=== PATIENT | female | born 1975 | race Hispanic/Latino ===

== ENCOUNTER 2021-10-30 06:00 | Emergency (ER) | payer OTHER, SELFPAY ==
--- NOTE | 2021-10-30 07:46 | ER ---
Nurse's Notes [facility] Name: Mackenzie Cho Age: 46 yrs Sex: Female : 1975 Arrival Date: 10/30/2021 Time: 06:06 Bed 6 Private MD: Diagnosis: Acute lymphadenitis of face, head and neck Presentation: 10/30 06:21 Chief complaint: Patient states: she was coughing but it turned into a headache on the bb left side of her head radiating to her neck x 1 week pt has taken OTC medications, tramadol, promethazine, and zofran with no relief of her headache or nausea. Coronavirus screen: Client presents with at least one sign or symptom that may indicate coronavirus-19. Ebola Screen: No symptoms or risks identified at this time. Initial Sepsis Screen: Does the patient meet any 2 criteria? No. Patient's initial sepsis screen is negative. Does the patient have a suspected source of infection? No. Patient's initial sepsis screen is negative. Risk Assessment: Do you want to hurt yourself or someone else? Patient reports no desire to harm self or others. Onset of symptoms was October 23, 2021. 06:21 Method Of Arrival: Ambulatory bb 06:21 Acuity: HEATHER 3 bb Triage Assessment: 08:12 Pain: Also complains of. 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 - Social history:: Smoking status: Patient denies any tobacco usage or history of. - Family history:: not pertinent. - Hospitalizations: : No recent hospitalization is reported. Screenin:37 Abuse screen: Denies threats or abuse. Denies injuries from another. Nutritional tw5 screening: No deficits noted. Tuberculosis screening: No symptoms or risk factors identified. Fall Risk None identified. Assessment: 06:37 General: Appears uncomfortable, Behavior is calm, cooperative, appropriate for age, tw5 Reports "I was sick last week and I finally got rid of the cough, but I have this terrible headache that just wont go away no matter what I take.". Pain: Complains of pain in "Headache," Patients states it is affecting mostly the left side of her head Pain currently is 9 out of 10 on a pain scale. Neuro: Level of Consciousness is awake, alert, obeys commands, Oriented to person, place, time, situation, Moves all extremities. 07:50 General: Appears in no apparent distress. uncomfortable, Behavior is calm, cooperative. tp1 Pain: Complains of pain in left side of forehead Pain radiates to left side of necck and left ear Pain currently is 8 out of 10 on a pain scale. Quality of pain is described as sharp. Neuro: Level of Consciousness is awake, alert, obeys commands, Oriented to person, place, time, situation. Cardiovascular: Patient's skin is warm and dry. Respiratory: Airway is patent Respiratory effort is even, unlabored. GI: Abdomen is round non-distended. : No signs and/or symptoms were reported regarding the genitourinary system. EENT: Cervical nodes enlarged on left. Derm: Skin is pink, warm \\T\\ dry. 07:50 Musculoskeletal: Circulation, motion, and sensation intact. tp1 Vital Signs: 06:21 BP 155 / 106; Pulse 81; Resp 16 S; Temp 98.3(O); Pulse Ox 98% on R/A; Weight 70.76 kg bb (R); Height 4 ft. 11 in. (149.86 cm) (R); Pain 9/10; 06:37 BP 152 / 98; Pulse 80; Resp 18; Pulse Ox 100% on R/A; tw5 08:04 BP 123 / 89; Pulse 76; Resp 18; Pulse Ox 97% on R/A; tp1 06:21 Body Mass Index 31.51 (70.76 kg, 149.86 cm) Providence Coma Score: 07:21 Eye Response: spontaneous(4). Verbal Response: oriented(5). Motor Response: obeys rn commands(6). Total: 15. ED Course: 06:06 Patient arrived in ED. ja2 06:15 Jese Macdonald MD is Attending Physician. kdr 06:24 Triage completed. bb 06:24 Arm band placed on Patient placed in an exam room, on a stretcher, on pulse oximetry. bb 06:31 Nel Engle is Primary Nurse. tw5 06:37 Patient has correct armband on for positive identification. Placed in gown. Bed in low tw5 position. Call light in reach. Side rails up X 1. Pulse ox on. NIBP on. Door closed. Noise minimized. Moved to private room. Warm blanket given. Verbal reassurance given. 07:11 Attending Physician role handed off by Jese Macdonald MD rn 07:11 Kian Graves MD is Attending Physician. rn 08:12 No provider procedures requiring assistance completed. Patient did not have IV access tp1 during this emergency room visit. Administered Medications: 07:53 Drug: Clindamycin 300 mg Route: PO; tp1 08:11 Follow up: Response: Medication administered at discharge. tp1 07:53 Drug: Zithromax (azithromycin) 500 mg Route: PO; tp1 08:11 Follow up: Response: Medication administered at discharge. tp1 07:59 Drug: Decadron (dexamethasone) 10 mg Route: IM; Site: right deltoid; tp1 08:12 Follow up: Response: Medication administered at discharge. tp1 07:59 Drug: Ketorolac 30 mg Route: IM; Site: right deltoid; tp1 08:12 Follow up: Response: Medication administered at discharge. tp1 Medication: 06:37 VIS not applicable for this client. tw5 Outcome: 07:46 Discharge ordered by . rn 08:13 Discharged to home ambulatory. tp1 08:13 Condition: good 08:13 Discharge instructions given to patient, Instructed on discharge instructions, follow up and referral plans. medication usage, Demonstrated understanding of instructions, follow-up care, medications, Prescriptions given X 2. 08:13 Patient left the ED. tp1 Signatures: Jese Macdonald MD MD kdr Ballard, Brenda, RN RN Kian Graves MD MD rn Alexander, Jessica ja Nel Engle tw5 Nel Tavarez RN RN tp1 Corrections: (The following items were deleted from the chart) 08:11 08:04 BP 123 / 89; tp1 tp1
--- NOTE | 2021-10-30 07:46 | EDPHYS ---
Physician Documentation [facility] Name: Mackenzie Cho Age: 46 yrs Sex: Female : 1975 Arrival Date: 10/30/2021 Time: 06:06 Bed 6 Private MD: ED Physician Kian Graves HPI: 10/30 07:21 This 46 yrs old Female presents to ER via Ambulatory with complaints of rn Headache, Cough, Neck Pain. 07:21 The patient complains of pain to the forehead and left jaw. The patient describes the rn headache as aching. Onset: The symptoms/episode began/occurred 1 week(s) ago. Associated signs and symptoms: Pertinent positives: This patient does not have any pertinent positive signs or symptoms associated with a headache. Pertinent negatives: altered mental status, fever, neck stiffness, rash. Severity of symptoms: At its worst the pain was moderate, in the emergency department the pain is unchanged. Headache History: Denies prior headaches. The patient has not experienced similar symptoms in the past. The patient has not recently seen a physician. Pt reports sick last week with cough/runny nose/congestion, felt like getting better, then frontal headache began along with swelling and pain along left anterior neck and jaw. No fever. No difficulty swallowing. No trauma. No pain along posterior neck or neck stiffness.. 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 - Social history:: Smoking status: Patient denies any tobacco usage or history of. - Family history:: not pertinent. - Hospitalizations: : No recent hospitalization is reported. ROS: 07:21 Constitutional: Negative for fever, chills, and weight loss, Eyes: Negative for injury, rn pain, redness, and discharge, ENT: + sinus pressure and pain, + pain along left jaw and anterior neck Neck: Negative for injury Neuro: Negative for weakness, numbness, tingling, and seizure. Exam: 07:21 Constitutional: This is a well developed, well nourished patient who is awake, alert, rn and in no acute distress. Head/Face: Normocephalic, atraumatic. Eyes: Periorbital areas with no swelling, redness, or edema. ENT: No oral swelling, no trismus. Neck: Trachea midline, + left anterior cervical LAD with tenderness, no crepitus. No neck stiffness or meningismus. Cardiovascular: Regular rate and rhythm. No pulse deficits. Skin: Warm, dry with normal turgor. Normal color with no rashes, no lesions, and no evidence of cellulitis. Neuro: Awake and alert, GCS 15, oriented to person, place, time, and situation. Cranial nerves II-XII grossly intact. Motor strength 5/5 in all extremities. Sensory grossly intact. Cerebellar exam normal. Vital Signs: 06:21 BP 155 / 106; Pulse 81; Resp 16 S; Temp 98.3(O); Pulse Ox 98% on R/A; Weight 70.76 kg bb (R); Height 4 ft. 11 in. (149.86 cm) (R); Pain 9/10; 06:37 BP 152 / 98; Pulse 80; Resp 18; Pulse Ox 100% on R/A; tw5 08:04 BP 123 / 89; Pulse 76; Resp 18; Pulse Ox 97% on R/A; tp1 06:21 Body Mass Index 31.51 (70.76 kg, 149.86 cm) bb Ezequiel Coma Score: 07:21 Eye Response: spontaneous(4). Verbal Response: oriented(5). Motor Response: obeys rn commands(6). Total: 15. MDM: 07:11 Patient medically screened. rn 07:21 Differential diagnosis: migraine, sinusitis, tension headache, lymphadenitis. Data rn reviewed: vital signs, nurses notes. 07:45 Counseling: I had a detailed discussion with the patient and/or guardian regarding: the rn historical points, exam findings, and any diagnostic results supporting the discharge/admit diagnosis, lab results, the need for outpatient follow up, to return to the emergency department if symptoms worsen or persist or if there are any questions or concerns that arise at home. Response to treatment: the patient's symptoms have mildly improved after treatment, and as a result, I will discharge patient. Special discussion: I discussed with the patient/guardian in detail that at this point there is no indication for admission to the hospital. It is understood, however, that if the symptoms persist or worsen the patient needs to return immediately for re-evaluation. Based on the history and exam findings, there is no indication for further emergent testing or inpatient evaluation. I discussed with the patient/guardian the need to see the ENT specialist for further evaluation of the symptoms. I discussed with the patient/guardian the need to see the primary care provider for further evaluation of the symptoms. 10/30 06:30 Order name: Flu; Complete Time: 07:42 kdr 10/30 06:31 Order name: COVID-19 SARS RT PCR (Document "Date of Onset" if Symptomatic); Complete kdr Time: 07:42 Administered Medications: 07:53 Drug: Clindamycin 300 mg Route: PO; tp1 08:11 Follow up: Response: Medication administered at discharge. tp1 07:53 Drug: Zithromax (azithromycin) 500 mg Route: PO; tp1 08:11 Follow up: Response: Medication administered at discharge. tp1 07:59 Drug: Decadron (dexamethasone) 10 mg Route: IM; Site: right deltoid; tp1 08:12 Follow up: Response: Medication administered at discharge. tp1 07:59 Drug: Ketorolac 30 mg Route: IM; Site: right deltoid; tp1 08:12 Follow up: Response: Medication administered at discharge. tp1 Disposition Summary: 10/30/21 07:46 Discharge Ordered Location: Home rn Problem: new rn Symptoms: have improved rn Condition: Stable rn Diagnosis - Acute lymphadenitis of face, head and neck rn Followup: rn - With: Private Physician - When: As needed - Reason: Recheck today's complaints, Re-evaluation by your physician Discharge Instructions: - Discharge Summary Sheet rn - Sinusitis, Adult rn - Lymphadenopathy rn Forms: - Medication Reconciliation Form rn - Thank You Letter rn - Antibiotic state's attorney - Prescription Opioid Use rn - Work release form tp1 Prescriptions: - Clindamycin HCl 300 mg Oral Capsule - take 1 capsule by ORAL route every 6 hours for 10 days; 40 capsule; Refills: 0, rn Product Selection Permitted - Zithromax Z-Leonel 250 mg Oral Tablet - take 1 tablet by ORAL route as directed for 5 days Day 1 - take two (2) tablets rn one time. Day 2, 3, 4 , 5 take one (1) tablet once daily.; 6 tablet; Refills: 0, Product Selection Permitted Signatures: Dispatcher [employer] Bouchra Perales RN RN bb Nieto, Roman, MD MD rn Parker, Tiffany, RN RN tp1
[2021-10-30] MEDS ORDERED: dexAMETHasone 10 MG/ML VIAL ONE (07:57)
[2021-10-30] MEDS ORDERED: AZITHROMYCIN 250 MG TAB ONE (07:57)
[2021-10-30] MEDS ORDERED: KETOROLAC 30 MG/ML INJ ONE (07:58)
[2021-10-30 08:54] VITALS: TEMP 98.3
[2021-10-30 09:12] VITALS: BP 123/89; O2SAT 97
== END 2021-10-30 08:13 | disposition home or self-care (01) ==
LOC: ER 06:00
DX: L04.0 Acute lymphadenitis of face, head and neck (principal); Z20.822 Contact with and (suspected) exposure to COVID-19; Z88.0 Allergy status to penicillin
CPT/HCPCS: 87804; 96372; 99283; J1100; U0003

== ENCOUNTER 2022-02-15 20:30 | Emergency (ER) | payer OTHER ==
[2022-02-15] MEDS ORDERED: TDAP (DIPHTH,PERTUSS(ACELL),TET VAC) 0.5 ML VIAL IMVAC ONE (21:33)
--- NOTE | 2022-02-15 21:50 | EDPHYS ---
Physician Documentation [facility] Name: Mackenzie Cho Age: 46 yrs Sex: Female : 1975 Arrival Date: 02/15/2022 Time: 20:39 Bed 12 Private MD: ED Physician Alexei Brown HPI: 02/15 21:19 This 46 yrs old Female presents to ER via Ambulatory with complaints of Needle pm1 Stick Exposure. 21:19 Onset: The symptoms/episode began/occurred just prior to arrival. The patient has not pm1 experienced similar symptoms in the past. The patient has not recently seen a physician. Patient was recapping a insulin syringe needle after injecting insulin into the patient. Patient accidentally stuck herself in left middle finger. Patient uncertain of tetanus status. 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 - Social history:: Smoking status: Patient denies any tobacco usage or history of. ROS: 21:19 Constitutional: Negative for fever, chills, and weight loss, Cardiovascular: Negative pm1 for chest pain, palpitations, and edema, Respiratory: Negative for shortness of breath, cough, wheezing, and pleuritic chest pain. 21:19 Neuro: Negative for headache, weakness, numbness, tingling, and seizure. 21:19 MS/extremity: Positive for of the left middle finger, Needlestick. 21:19 All other systems are negative. Exam: 21:19 Constitutional: This is a well developed, well nourished patient who is awake, alert, pm1 and in no acute distress. Head/Face: Normocephalic, atraumatic. 21:19 MS/ Extremity: Pulses equal, no cyanosis. Neurovascular intact. Full, normal range of motion. 21:19 Eyes: Exam is negative for acute changes. 21:19 ENT: Exam is negative for acute changes. 21:19 Cardiovascular: Exam negative for acute changes, Rate: normal, Rhythm: regular, Pulses: no pulse deficits are appreciated. 21:19 Respiratory: Exam negative for acute changes, respiratory distress, shortness of breath. 21:19 Skin: Appearance: normal except for affected area, ecchymosis, noted on the, left middle finger, that are mild. 21:19 Neuro: Exam negative for acute changes, Orientation: is normal, Mentation: is normal, Motor: is normal, moves all fours. Vital Signs: 20:55 Pulse 76; Resp 18; Temp 97.7(TE); Pulse Ox 98% on R/A; Weight 70.31 kg; Height 4 ft. 11 kd3 in. (149.86 cm); 20:55 BP 130 / 93; kd3 20:55 Body Mass Index 31.31 (70.31 kg, 149.86 cm) kd3 MDM: 21:06 Patient medically screened. raisa 21:47 Data reviewed: vital signs. Data interpreted: Pulse oximetry: on room air is 98 %. pm1 Interpretation: normal. Counseling: I had a detailed discussion with the patient and/or guardian regarding: the historical points, exam findings, and any diagnostic results supporting the discharge/admit diagnosis, the need for outpatient follow up, to return to the emergency department if symptoms worsen or persist or if there are any questions or concerns that arise at home, informed the patient that the HIV and hepatitis panel are send outs and labs will result in a couple of days. She will need to follow up with her PCP/work physician for further evaluation and treatment. 02/15 21:19 Order name: Hepatitis Panel pm1 02/15 21:40 Order name: HIV AG/AB, 4th Gen W/ Reflex EDMS Administered Medications: 21:41 Drug: Tetanus-Diphtheria Toxoid Adult 0.5 ml {Ham Clerk: [employer] ([employer]). Exp: kd3 11/25/2022. Lot #: [id number]. } Route: IM; Site: left deltoid; 22:09 Follow up: Response: No adverse reaction kd3 Disposition Summary: 02/15/22 21:49 Discharge Ordered Location: Home pm1 Problem: new pm1 Symptoms: have improved pm1 Condition: Stable pm1 Diagnosis - Contact with contaminated hypodermic needle, initial encounter pm1 Followup: pm1 - With: Emergency Department - When: As needed - Reason: Worsening of condition Followup: pm1 - With: Private Physician - When: 2 - 3 days - Reason: Recheck today's complaints, Continuance of care, Re-evaluation by your physician Discharge Instructions: - Discharge Summary Sheet pm1 - Needlestick and Sharps Injury pm1 - Body Fluid Exposure Information pm1 - Preventing Body Fluid Exposure pm1 Forms: - Medication Reconciliation Form pm1 - Thank You Letter pm1 - Antibiotic Education pm1 - Prescription Opioid Use pm1 Signatures: Dispatcher [employer] EDMS Alexei Brown MD MD cha Marinas, Patrick, NP MEASUREMENT DEPARTMENT CHIEF CLERK pm1 Patsy Hess RN RN kd3 Corrections: (The following items were deleted from the chart) 21:41 21:22 HIV (1 ordered. EDHI EDMS
--- NOTE | 2022-02-15 21:50 | ER ---
Nurse's Notes [facility] Name: Mackenzie Cho Age: 46 yrs Sex: Female : 1975 Arrival Date: 02/15/2022 Time: 20:39 Bed 12 Private MD: Diagnosis: Contact with contaminated hypodermic needle, initial encounter Presentation: 02/15 20:55 Chief complaint: Patient states: I work at [employer] and they have been notified and sent kd3 me here for a needle stick with an insulin needle. I missed the cap and poked myself in the finger. It was dirty. Coronavirus screen: Vaccine status: Patient reports receiving the 2nd dose of the covid vaccine. Ebola Screen: No symptoms or risks identified at this time. Initial Sepsis Screen: Does the patient meet any 2 criteria? No. Patient's initial sepsis screen is negative. Does the patient have a suspected source of infection? No. Patient's initial sepsis screen is negative. Risk Assessment: Do you want to hurt yourself or someone else? Patient reports no desire to harm self or others. Onset of symptoms was February 15, 2022. 20:55 Method Of Arrival: Ambulatory kd3 20:55 Acuity: HEATHER 4 kd3 Triage Assessment: 20:57 General: Appears in no apparent distress. Behavior is calm, cooperative. Pain: Denies kd3 pain. Neuro: Level of Consciousness is awake, alert, obeys commands, Oriented to person, place, time, situation. Cardiovascular: Patient's skin is warm and dry. Respiratory: Airway is patent Trachea midline Respiratory effort is even, unlabored, Respiratory pattern is regular, symmetrical. 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 - Social history:: Smoking status: Patient denies any tobacco usage or history of. Screenin:07 [facility] ED Fall Risk Assessment (Adult) History of falling in the last 3 months, kd3 including since admission No falls in past 3 months (0 pts) Confusion or Disorientation No (0 pts) Intoxicated or Sedated No (0 pts) Impaired Gait No (0 pts) Mobility Assist Device Used No (0 pt) Altered Elimination No (0 pt) Score/Fall Risk Level 0 - 2 = Low Risk. Humpty Dumpty Scale Fall Assessment Tool (age< 18yrs) Age 13 years and above (1 pt) Gender Female (1 pt) Diagnosis Other diagnosis (1 pt) Cognitive Impairments Oriented to own ability (1 pt) Environmental Factors Outpatient area (1 pt) Response to Surgery/Sedation/Anesthesia More than 48 hours/ None (1 pt) Medication Usage Other medications/ None (1 pt) Fall Risk Score/ Level High Fall Risk: >/= 12 points. Abuse screen: Denies threats or abuse. Denies injuries from another. Nutritional screening: No deficits noted. Tuberculosis screening: No symptoms or risk factors identified. Fall Risk No fall in past 12 months (0 pts). No secondary diagnosis (0 pts). No IV (0 pts). Ambulatory Aid- None/Bed Rest/Nurse Assist (0 pts). Gait- Normal/Bed Rest/Wheelchair (0 pts) Mental Status- Oriented to own ability (0 pts). Total Chambers Fall Scale indicates No Risk (0-24 pts). Vital Signs: 20:55 Pulse 76; Resp 18; Temp 97.7(TE); Pulse Ox 98% on R/A; Weight 70.31 kg; Height 4 ft. 11 kd3 in. (149.86 cm); 20:55 BP 130 / 93; kd3 20:55 Body Mass Index 31.31 (70.31 kg, 149.86 cm) kd3 ED Course: 20:39 Patient arrived in ED. es 20:57 Triage completed. kd3 20:57 Arm band placed on left wrist. kd3 21:00 Gilberto Frausto NP is PHCP. pm1 21:00 Alexei Brown MD is Attending Physician. pm1 21:41 Patsy Hess, JENNIFER is Primary Nurse. kd3 22:08 Patient has correct armband on for positive identification. kd3 22:08 No provider procedures requiring assistance completed. Patient did not have IV access kd3 during this emergency room visit. 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 Exp: kd3 11/25/2022. Lot #: [id number]. } Route: IM; Site: left deltoid; 22:09 Follow up: Response: No adverse reaction kd3 Medication: 21:43 Vaccine Information Statement (VIS) provided today. Questions and/or concerns kd3 addressed. VIS edition date: October 07, 2020. Outcome: 21:49 Discharge ordered by . pm1 22:08 Discharged to home ambulatory. kd3 22:08 Condition: stable 22:08 Discharge instructions given to patient, Instructed on discharge instructions, Demonstrated understanding of instructions. 22:09 Patient left the ED. kd3 Signatures: Ashley Trevino Patrick, NP SUPPLY CHAIN MANAGER pm1 Patsy Hess, RN RN kd3
[2022-02-15 22:21] VITALS: BP 130/93; TEMP 97.7; O2SAT 98
== END 2022-02-15 22:09 | disposition home or self-care (01) ==
LOC: ER 20:30
DX: S61.233A Puncture wound without foreign body of left middle finger without damage to nail, initial encounter (principal); W46.1XXA Contact with contaminated hypodermic needle, initial encounter; Z23 Encounter for immunization
CPT/HCPCS: 80074; 87389; 90471; 99283